=== PATIENT | female | born 1975 | race Caucasian/White ===

== ENCOUNTER 2017-10-02 16:51 | Inpatient (IN) | payer OTHER ==
[~2017-10-02] VITALS: Ht 157.5 cm; Wt 65.8 kg
[2017-10-02] MEDS ORDERED: TOPAMAX25 MG (17:03)
[2017-10-04] MEDS ORDERED: ULTRACET PO (12:16)
[2017-10-04] MEDS ORDERED: PROTONIX40 MG PO (12:16)
[2017-10-04] MEDS ORDERED: LEVAQUIN500 MG PO (12:16)
== END 2017-10-04 14:20 | disposition home or self-care (01) | DRG 343 ==
LOC: ER 16:51 → SURH 18:40 → SEC-K 18:40 → SURH 22:36
PROVIDERS: Surgery
PROC: BW21Y0Z Computerized Tomography (CT Scan) of Abdomen and Pelvis using Other Contrast, Unenhanced and Enhanced (ICD-10-PCS; 2017-10-02)
PROC: 0DTJ0ZZ Resection of Appendix, Open Approach (ICD-10-PCS; principal; 2017-10-02 19:00)
DX: K35.89 Other acute appendicitis (principal)

== ENCOUNTER → 2018-11-23 | Outpatient (CLI) | payer OTHER ==
[~2018-11-23] MED LIST: LEVAQUIN500 MG PO; PROTONIX40 MG PO; TOPAMAX25 MG; ULTRACET PO
== END | disposition home or self-care (01) ==
LOC: MAMO-SONO 10:09
DX: N60.11 Diffuse cystic mastopathy of right breast (principal); Z12.31 Encounter for screening mammogram for malignant neoplasm of breast

== ENCOUNTER → 2019-03-16 | Day surgery (SDC) | payer OTHER ==
[~2019-03-16] MED LIST changes: +VASOTEC2.5 MG PO
== END | disposition home or self-care (01) ==
LOC: CIR.AMB 09:35
DX: N75.1 Abscess of Bartholin's gland (principal)